=== PATIENT | female | born 1990 | race Caucasian/White ===

== ENCOUNTER 2018-11-21 12:23 | Emergency (ER) | payer OTHER ==
[~2018-11-21] VITALS: Ht 160 cm; Wt 70.3 kg
[2018-11-21 13:41] VITALS: BP 121/78
== END 2018-11-21 13:42 | disposition home or self-care (01) ==
LOC: ER 12:23
DX: R09.89 Other specified symptoms and signs involving the circulatory and respiratory systems (principal); R07.0 Pain in throat